=== PATIENT | female | born 1970 | race Caucasian/White ===

== ENCOUNTER 2016-12-30 14:52 | Emergency (ER) | payer OTHER ==
[~2016-12-30] VITALS: Ht 162.6 cm; Wt 50.4 kg
[~2016-12-30 14:52] MED LIST: ATARAX,VISTARIL25 MG PO; CHERATUSSIN AC473 ML PO; CIPRO500 MG PO; IRON18 MG PO; NITROFURANTOIN100 M3 PO; ONDANSETRON HCL4 MG PO; PHENAZOPYRIDIN200 MG PO; POTASSIUM CHLO10 ME3 PO; PROAIR HFA8.5 GM IH; TRAMADOL HCL50 MG PO; [UNRECOGNIZED DRUG - OTHER] LEFT EYE
[2016-12-30] MEDS ORDERED: TYLENOL WITH C1 EACH PO (16:56)
[2016-12-30 17:08] VITALS: BP 119/73
== END 2016-12-30 17:09 | disposition home or self-care (01) ==
LOC: EME 14:52
DX: S00.03XA Contusion of scalp, initial encounter (principal); S05.11XA Contusion of eyeball and orbital tissues, right eye, initial encounter; S05.12XA Contusion of eyeball and orbital tissues, left eye, initial encounter; V86.59XA Driver of other special all-terrain or other off-road motor vehicle injured in nontraffic accident, initial encounter; J44.9 Chronic obstructive pulmonary disease, unspecified; F32.9 Major depressive disorder, single episode, unspecified; F41.9 Anxiety disorder, unspecified; F10.10 Alcohol abuse, uncomplicated; F17.200 Nicotine dependence, unspecified, uncomplicated
CPT/HCPCS: 70450; 70486; 72050; 99281; 99283